=== PATIENT | female | born 1985 | race Caucasian/White ===

== ENCOUNTER → 2018-10-10 14:51 | Outpatient (CLI) | payer MEDICAID ==
[~2018-10-10 14:51] MED LIST: ROPINIROLE HCL2 MG PO; VALIUM 2 MG TAB2 MG PO; ZANAFLEX4 MG PO
== END | disposition home or self-care (01) ==
LOC: D.MRI 14:51
PROVIDERS: ATTEND Nurse Practitioner
DX: G40.309 Generalized idiopathic epilepsy and epileptic syndromes, not intractable, without status epilepticus (principal)

== ENCOUNTER 2018-10-12 17:06 | Emergency (ER) | payer MEDICAID ==
[~2018-10-12] VITALS: Ht 162.6 cm; Wt 133.2 kg
[2018-10-12 17:15] VITALS: Ht 162.6 cm; Wt 133.2 kg
[2018-10-12] MEDS ORDERED: ROPINIROLE HCL2 MG PO (17:17)
[2018-10-12] MEDS ORDERED: VALIUM 2 MG TAB2 MG PO (17:17)
[2018-10-12] MEDS ORDERED: ZANAFLEX4 MG PO (17:18)
[2018-10-12 17:53] LABS: BASOPHILS 0.3 % (0-2); HEMOGLOBIN 14.9 g/dL (12-16); IMMATURE GRANULOCYTES 0.4 % (0-5); LYMPHOCYTES 45.7 % (15-50); MCH 31.8 pg (26.0-34.0); MCHC 35.5 g/dL (31.0-37.0); MCV 89.6 fL (80.0-100.0); MEAN PLATELET VOLUME 10.7 fL (7.4-10.4); MONOCYTES 6.1 % (2-11); NEUTROPHILS 45.5 % (40-80); PLATELET COUNT 280 10x3/uL (130-400); RBC 4.69 10x6/uL (4.00-5.40); RDW 12.8 % (11.5-14.5); WBC 7.4 10x3/uL (4.8-10.8)
[2018-10-12 18:06] LABS: APPEARANCE CLEAR (CLEAR); COLOR YELLOW (YELLOW)
[2018-10-12 18:07] LABS: BILIRUBIN NEGATIVE (NEGATIVE); GLUCOSE NEGATIVE (NEGATIVE); KETONE NEGATIVE (NEGATIVE); NITRITE NEGATIVE (NEGATIVE); PROTEIN NEGATIVE (NEGATIVE); SPECIFIC GRAVITY 1.025 (1.005-1.020); UROBILINOGEN NORMAL (NORMAL)
[2018-10-12 18:13] LABS: ALBUMIN 3.5 g/dL (3.4-5.0); BILIRUBIN - TOTAL 0.41 mg/dL (0.2-1.3); CALCIUM 9.1 mg/dL (8.5-10.1); CARBON DIOXIDE 25.6 mmol/L (21.0-32.0); POTASSIUM - SERUM 3.6 mmol/L (3.5-5.1); PROTEIN - SERUM 7.6 g/dL (6.4-8.2)
[2018-10-12 22:16] VITALS: BP 127/75
== END 2018-10-12 22:18 | disposition other institution (70) ==
LOC: D.ER 17:06
PROVIDERS: Family Medicine
DX: G93.5 Compression of brain (principal); R25.1 Tremor, unspecified

== ENCOUNTER 2019-08-31 05:40 | Day surgery (SDC) | payer MEDICAID ==
[2019-08-29 11:35] LABS: HEMATOCRIT 44.5 % (36.0-48.0); HEMOGLOBIN 14.6 g/dL (12-16); MCH 30.4 pg (26.0-34.0); MCHC 32.8 g/dL (31.0-37.0); MCV 92.7 fL (80.0-100.0); MEAN PLATELET VOLUME 11.3 fL (7.4-10.4); RBC 4.8 10x6/uL (4.00-5.40); RDW 12.3 % (11.5-14.5); WBC 6.3 10x3/uL (4.8-10.8)
[~2019-08-31] VITALS: Ht 162.6 cm; Wt 136.1 kg
[2019-08-31 06:31] VITALS: BP 122/84; Ht 162.6 cm; Wt 136.1 kg
[2019-08-31] MEDS ORDERED: HYDROCODON-ACE1 EA10 PO (08:10)
--- NOTE | 2019-09-05 11:16 | OP ---
PATIENT NAME: ABELINO MENON MEDICAL RECORD: [id number] :85 LOCATION:D.OPS ADMISSION DATE: SURGEON: ZO ABRAMS MD DATE OF OPERATION: 08/31/2019 PREOPERATIVE DIAGNOSES: Patellofemoral syndrome of the left knee. POSTOPERATIVE DIAGNOSES: Patellofemoral syndrome of the left knee. PROCEDURE: Left knee arthroscopy with lateral release. SURGEON: Zo Abrams MD ANESTHESIA: General. INTRAOPERATIVE COMPLICATIONS: None. SUMMARY OF PATHOLOGIC FINDINGS: Consistent with the preoperative radiographs, the patient had substantial chondromalacia of the lateral compartment with early chondral fissuring as well as lateral patellar facet compression. OPERATIVE SUMMARY IN DETAIL: After obtaining the appropriate preoperative orthopedic surgery consent as well as anesthetic consultation, evaluation, and clearance, the patient was brought to the operating room and placed on the operating table in supine position. After adequate laryngeal mask airway anesthesia was administered, tourniquet was placed in the proximal aspect of the left lower extremity. Left lower extremity was then prepped and draped in routine sterile fashion. The leg was elevated and exsanguinated, tourniquet was inflated to 350 mmHg. Routine inferolateral portal was established followed by superomedial portal and inferomedial portal. Diagnostic arthroscopy showed the patient had really well maintained joint without the presence of meniscal tearing. [place] hook tip probe was then used to perform a lateral release from just below the vastus lateralis to the inferolateral portal. Having completed this, arthroscopy portals were closed in routine interrupted fashion using 4-0 Prolene. The knee was insufflated with 30 mL of 0.25% Marcaine with epinephrine and 80 mg Depo-Medrol. Sterile dressings were applied. Tourniquet was deflated. The patient was awakened and taken to recovery room in stable condition. All final needle and sponge counts were correct. TRANSINT:[id number] Voice Confirmation ID: [id number] DOCUMENT ID: [id number] JOSE ALBERTO DYE, ZO BARCENAS at 1116 CC: [id number] DICTATION DATE: 09/04/19 1643 DOMINATRIX: 09/05/19 0109 [facility] 08/31/19 [place] [address]
== END 2019-08-31 09:55 | disposition home or self-care (01) ==
LOC: D.OPS 05:40
PROVIDERS: Anesthesiology; ATTEND Orthopaedic Surgery
DX: M22.2X2 Patellofemoral disorders, left knee (principal); M25.562 Pain in left knee; X58.XXXA Exposure to other specified factors, initial encounter; M22.42 Chondromalacia patellae, left knee

== ENCOUNTER → 2019-12-28 13:05 | Outpatient (CLI) | payer MEDICAID ==
[2019-08-31 06:31] VITALS: BMI 51.6
[~2019-12-28 13:05] MED LIST changes: +HYDROCODON-ACE1 EA10 PO
== END | disposition home or self-care (01) ==
LOC: D.MRI 13:05
PROVIDERS: ATTEND Orthopaedic Surgery
DX: M22.2X1 Patellofemoral disorders, right knee (principal)

== ENCOUNTER 2020-01-18 06:45 | Day surgery (SDC) | payer MEDICAID ==
[2020-01-17 15:48] LABS: HEMATOCRIT 42.8 % (36.0-48.0); HEMOGLOBIN 14.5 g/dL (12-16); MCH 31.5 pg (26.0-34.0); MCHC 33.9 g/dL (31.0-37.0); MCV 92.8 fL (80.0-100.0); RBC 4.61 10x6/uL (4.00-5.40); RDW 12.3 % (11.5-14.5); WBC 7.3 10x3/uL (4.8-10.8)
[~2020-01-18] VITALS: Ht 162.6 cm; Wt 141.1 kg
--- NOTE | ~2020-01-18 | OP ---
PATIENT NAME: ABELINO MENON MEDICAL RECORD: [id number] :85 LOCATION:D.OPS ADMISSION DATE: SURGEON: ZO ABRAMS MD DATE OF OPERATION: 01/18/2020 PREOPERATIVE DIAGNOSIS: Patellofemoral syndrome of the right knee. POSTOPERATIVE DIAGNOSIS: Patellofemoral syndrome of the right knee. PROCEDURE: Right knee arthroscopy with arthroscopic lateral release. SURGEON: Zo Abrams MD ANESTHESIA: General. INTRAOPERATIVE COMPLICATIONS: None. SUMMARY OF PATHOLOGIC FINDINGS: As found on her contralateral knee at the previous operation, the patient had a very far lateral riding patella with minimal grade I chondromalacia of the lateral patellar facet joint. OPERATIVE SUMMARY IN DETAIL: After obtaining the appropriate preoperative orthopedic surgery consent as well as anesthetic consultation, evaluation and clearance, the patient was taken to the operating room and placed on the table in supine position. After adequate general laryngeal mask was administered, tourniquet was placed about the proximal aspect of the right lower extremity. Right lower extremity was then prepped and draped in routine sterile fashion. Leg was elevated, exsanguinated and tourniquet was inflated to 350 mmHg. At this point, the appropriate timeout was taken and agreed upon by all given the patient's unique identifiers. Routine inferolateral portal was established followed by superomedial portal and inferomedial portal. Diagnostic arthroscopy showed a relatively pristine knee except for the patellofemoral syndrome. Hook tipped ablation [place] wand was utilized to release the lateral retinaculum from just below the vastus lateralis to the inferolateral portal. Having completed this, the knee was insufflated with 30 mL of 0.25% Marcaine with epinephrine and 40 mg of Depo-Medrol. Arthroscopy portals were closed in routine interrupted fashion using 4-0 Prolene. Sterile dressings were applied. The patient was awakened and taken to recovery room in stable condition. All final needle and sponge counts were correct. TRANSINT:[id number] Voice Confirmation ID: [id number] DOCUMENT ID: [id number] ZO ABRAMS MD CC: [id number] DICTATION DATE: 02/01/20 1351 LABORATORY GENETICIST: 02/01/20 1524 [facility] 01/18/20 [id number] [place] [address]
[~2020-01-18 06:45] MED LIST changes: +FLORINEF 0.1 M0.1 MG PO
[2020-01-18 07:39] VITALS: BP 123/83; Ht 162.6 cm; Wt 141.1 kg
[2020-01-18] MEDS ORDERED: HYDROCODON-ACE1 EA10 PO (08:46)
--- NOTE | 2020-01-18 11:36 | NUR ---
1045 IV D/C'D WITH CANNULA INTACT, PRESSURE HELD AND DRSG PLACED. DISCHARGE INSTRUCTIONS GIVEN AND PT VERBALIZED AN UNDERSTANDING. DISHARGED HOME IN STABLE CONDITION AND WITHOUT C/O
== END 2020-01-18 10:50 | disposition home or self-care (01) ==
LOC: D.OPS 06:45
PROVIDERS: Anesthesiology; ATTEND Orthopaedic Surgery
DX: M22.2X1 Patellofemoral disorders, right knee (principal); M25.561 Pain in right knee